=== PATIENT | male | born 2000 | race Caucasian/White ===

== ENCOUNTER 2021-04-14 04:25 | Emergency (ER) | payer OTHER, SELFPAY ==
--- OUTSIDE RECORDS SUMMARY | 2021-04-14 04:29 | XMS REPORT | Continuity of Care Document ---
:2000 Author Organization [facility] t Address [address] [place] [address] Dr. Joseph. [address] [place] [address] Care Team Providers Name Role Phone Oneyda Attending Clinician [phone] Lab, Fam Pob I Attending Clinician Unavailable Priscilla HOWARD Attending Clinician Problems This patient has no known problems. Allergies, Adverse Reactions, Alerts This patient has no known allergies or adverse reactions. Medications This patient has no known medications. Procedures This patient has no known procedures. Encounters Start End Encounter Admission Attending Care Care Encounter Source Date/Time Date/Time Type Type Clinicians Facility Department ID 2020-12-31 2020-12-31 Outpatient [facility] [id number] 00:00:00 00:00:00 Tracey [id number] 2020-12-29 2020-12-29 Laboratory Lab, [facility] [id number] 12:52:56 13:12:56 Only Fam Pob I [facility] [id number] [place] [id number] [facility] [id number] nal [address] 2020-12-19 2020-12-19 Outpatient [facility] [id number] 00:00:00 00:00:00 Tracey [id number] 2020-12-19 2020-12-19 Outpatient [facility] [id number] 00:00:00 00:00:00 Tracey [id number] 2020-10-23 2020-10-23 [facility] [id number] 18:18:00 20:29:00 Walter Love [id number] [place] [id number] [place] [id number] Results This patient has no known results.
[2021-04-14 05:46] LABS: Absolute Lymphocytes (CBC) 0.9 K/uL (0.7-4.9); Hematocrit 49.7 % (39.6-49.0); Lymphocytes % 6.3 % (15.3-44.8); MPV 8.9 fL (7.6-11.3); RBC Red Blood Cell Count 5.63 M/uL (4.33-5.43)
[2021-04-14 05:56] LABS: ALT/SGPT 70 U/L (12-78); AST/SGOT 37 U/L (15-37); Albumin 4.8 g/dL (3.4-5.0); Alkaline Phosphatase 84 U/L (45-117); BUN Blood Urea Nitrogen 11 mg/dL (7-18); Bicarbonate 22 mmol/L (21-32); Bilirubin Direct 0.2 mg/dL (0-0.2); Bilirubin Total 0.5 mg/dL (0.2-1.0); Glucose Level 111 mg/dL (74-106); Lipase 40 U/L (73-393); Potassium 3.9 mmol/L (3.5-5.1); Protein, Total 8.6 g/dL (6.4-8.2); Sodium Level 139 mmol/L (136-145)
[2021-04-14 05:58] LABS: Urine Blood Negative (Negative); Urine Glucose Negative (Negative); Urine Protein 1+ (Negative); Urine Specific Gravity >=1.030 (1.005-1.030); Urine pH 6.5 (5.0-7.0)
[2021-04-14] MEDS ORDERED: NA CHLORIDE 0.9% 1,000 ML ONE (06:06)
[2021-04-14] MEDS ORDERED: ONDANSETRON 4 MG/2 ML VIAL ONE (06:06)
[2021-04-14 06:29] LABS: Blood Morphology Comment NOT SEEN (NOT SEEN); Platelet Estimate ADEQ
[2021-04-14] MEDS ORDERED: PANTOPRAZOLE 40 MG INJ ONE (06:42)
--- NOTE | 2021-04-14 07:27 | ER ---
Nurse's Notes [facility] Name: Russel Ureña Age: 21 yrs Sex: Male : 2000 Arrival Date: 04/14/2021 Time: 04:32 Bed 20 Private MD: Diagnosis: Nausea with vomiting, unspecified Presentation: 04/14 04:47 Chief complaint: Patient states: he drank a lot of alcohol yesterday from noon to 6 or bb 7 pm started vomiting about 3 to 4 hours ago to the point of vomiting blood. Coronavirus screen: At this time, the client does not indicate any symptoms associated with coronavirus-19. Ebola Screen: No symptoms or risks identified at this time. Initial Sepsis Screen: Does the patient meet any 2 criteria? No. Patient's initial sepsis screen is negative. Does the patient have a suspected source of infection? No. Patient's initial sepsis screen is negative. Risk Assessment: Do you want to hurt yourself or someone else? Patient reports no desire to harm self or others. Onset of symptoms was April 14, 2021. 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 - Social history:: Smoking status: Reported history of juuling and/or vaping. Patient uses alcohol, patient/guardian reports recent binge of alcohol consumption. street drugs, marijuana. Screenin:11 Abuse screen: Denies threats or abuse. Denies injuries from another. Nutritional rr5 screening: No deficits noted. Tuberculosis screening: No symptoms or risk factors identified. Fall Risk IV access (20 points). Total Gomez Fall Scale indicates No Risk (0-24 pts). Assessment: 05:00 General: Appears in no apparent distress. uncomfortable, Behavior is calm, cooperative, rr5 appropriate for age. 05:00 Pain: Complains of pain in abdomen Pain currently is 6 out of 10 on a pain scale. rr5 Quality of pain is described as aching, Pain began gradually, Is intermittent. Neuro: Level of Consciousness is awake, alert, obeys commands, Oriented to person, place, time. Cardiovascular: Capillary refill < 3 seconds Patient's skin is warm and dry. Respiratory: Airway is patent Respiratory effort is even, unlabored, Respiratory pattern is regular, symmetrical. GI: Abdomen is round Reports lower abdominal pain, upper abdominal pain, nausea, vomiting. : No signs and/or symptoms were reported regarding the genitourinary system. EENT: No signs and/or symptoms were reported regarding the EENT system. Derm: Skin is intact, is healthy with good turgor, Skin temperature is warm. Musculoskeletal: Capillary refill < 3 seconds. 06:32 Reassessment: Patient and/or family updated on plan of care and expected duration. Pain ak2 level reassessed. 07:00 General: Appears in no apparent distress. Behavior is calm, cooperative. Neuro: Level rb3 of Consciousness is awake, alert, obeys commands, Oriented to person, place, time, situation. Cardiovascular: Patient's skin is warm and dry. Respiratory: Airway is patent Respiratory effort is even, unlabored, Respiratory pattern is regular, symmetrical. GI: No signs and/or symptoms were reported involving the gastrointestinal system. : No signs and/or symptoms were reported regarding the genitourinary system. 07:34 Reassessment: Pt. tolerated PO challenge well. rb3 Vital Signs: 04:47 BP 132 / 89; Pulse 97; Resp 18 S; Temp 97.3(TE); Pulse Ox 99% on R/A; Weight 92.99 kg bb (R); Height 5 ft. 10 in. (177.80 cm) (R); Pain 6/10; 06:34 BP 117 / 86; Pulse 82; Resp 16; Pulse Ox 100% on R/A; ak2 07:30 BP 137 / 65; Pulse 91; Resp 16; Pulse Ox 98% ; rb3 04:47 Body Mass Index 29.41 (92.99 kg, 177.80 cm) bb ED Course: 04:32 Patient arrived in ED. am4 04:49 Triage completed. bb 04:49 Arm band placed on Patient placed in an exam room, on a stretcher, on pulse oximetry. bb 05:00 Inserted saline lock: 18 gauge in left antecubital area, using aseptic technique. Blood bb collected. 05:03 Eliezer Truong, RN is Primary Nurse. rr5 05:11 Patient has correct armband on for positive identification. Bed in low position. Call rr5 light in reach. Pulse ox on. NIBP on. 05:12 Ayden Taylor MD is Attending Physician. 7 06:09 Maribell Valderrama FNP-C [facility]. kb 07:41 No provider procedures requiring assistance completed. IV discontinued, intact, rb3 bleeding controlled, No redness/swelling at site. Pressure dressing applied. Administered Medications: 05:57 Drug: Zofran (Ondansetron) 4 mg Route: IVP; Site: left antecubital; rr5 06:26 Follow up: Response: No adverse reaction rr5 05:58 Drug: NS 0.9% 1000 ml Route: IV; Rate: 1000 ml; Site: left antecubital; rr5 07:06 Follow up: Response: No adverse reaction; IV Status: Completed infusion; IV Intake: rr5 1000ml 06:26 Drug: ProTONIX (pantoprazole) 40 mg Route: IVP; Site: left antecubital; rr5 07:06 Follow up: Response: No adverse reaction rr5 Intake: 07:06 IV: 1000ml; Total: 1000ml. rr5 Outcome: 07:27 Discharge ordered by MD. kb 07:41 Discharged to home ambulatory, with family. rb3 07:41 Condition: stable 07:41 Discharge instructions given to patient, Instructed on discharge instructions, follow up and referral plans. medication usage, Demonstrated understanding of instructions, follow-up care, medications, Prescriptions given X 1. 07:42 Patient left the ED. rb3 Signatures: Maribell Valderrama FNP-C FNP-Ckb Ballard, Brenda RN RN Eliezer Crain RN RN rr5 Ayden Taylor MD MD 7 Ammy Mahan RN RN rb3 Rocio Ruggiero Anthony ak2
--- NOTE | 2021-04-14 07:27 | EDPHYS ---
Physician Documentation [facility] Name: Russel Ureña Age: 21 yrs Sex: Male : 2000 Arrival Date: 04/14/2021 Time: 04:32 Bed 20 Private MD: ED Physician Ayden Taylor HPI: 04/14 06:14 This 21 yrs old Male presents to ER via Ambulatory with complaints of kb Vomiting. 06:14 The patient presents to the emergency department with nausea, vomiting. Onset: The kb symptoms/episode began/occurred last night. Possible causes: etoh consumption. The symptoms are aggravated by nothing. The symptoms are alleviated by nothing. Associated signs and symptoms: Pertinent positives: nausea, vomiting, Pertinent negatives: abdominal pain, anorexia, belching, constipation, diarrhea, dysuria, fever, flatulence, GI bleeding, hematuria. Severity of symptoms: At their worst the symptoms were moderate in the emergency department the symptoms have resolved. The patient has not experienced similar symptoms in the past. The patient has not recently seen a physician. Pt states "I drank way too much yesterday and started vomiting and couldn't stop. I couldn't hold anything down." Pt was given zofran prior to evaluation and states he feels "way better." Pt now comfortable and wants to eat. Denies abd pain, no tenderness upon exam. . 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 - Social history:: Smoking status: Reported history of juuling and/or vaping. Patient uses alcohol, patient/guardian reports recent binge of alcohol consumption. street drugs, marijuana. ROS: 06:14 Constitutional: Negative for fever, chills, and weight loss. kb 06:14 Abdomen/GI: Positive for nausea and vomiting, Negative for abdominal pain. 06:14 All other systems are negative. Exam: 06:14 Constitutional: This is a well developed, well nourished patient who is awake, alert, kb and in no acute distress. Head/Face: Normocephalic, atraumatic. ENT: Moist Mucous membranes Cardiovascular: Regular rate and rhythm with a normal S1 and S2. No gallops, murmurs, or rubs. No pulse deficits. Respiratory: Respirations even and unlabored. No increased work of breathing, no retractions or nasal flaring. Abdomen/GI: Soft, non-tender. No distention Skin: Warm, dry with normal turgor. Normal color. MS/ Extremity: Pulses equal, no cyanosis. Neurovascular intact. Full, normal range of motion. Neuro: Awake and alert, GCS 15, oriented to person, place, time, and situation. Moves all extremities. Normal gait. Psych: Awake, alert, with orientation to person, place and time. Behavior, mood, and affect are within normal limits. Vital Signs: 04:47 BP 132 / 89; Pulse 97; Resp 18 S; Temp 97.3(TE); Pulse Ox 99% on R/A; Weight 92.99 kg bb (R); Height 5 ft. 10 in. (177.80 cm) (R); Pain 6/10; 06:34 BP 117 / 86; Pulse 82; Resp 16; Pulse Ox 100% on R/A; ak2 07:30 BP 137 / 65; Pulse 91; Resp 16; Pulse Ox 98% ; rb3 04:47 Body Mass Index 29.41 (92.99 kg, 177.80 cm) bb MDM: 06:09 Patient medically screened. kb 06:14 Data reviewed: vital signs, nurses notes. Data interpreted: Pulse oximetry: on room air kb is 99 %. Interpretation: normal. 07:26 Counseling: I had a detailed discussion with the patient and/or guardian regarding: the kb historical points, exam findings, and any diagnostic results supporting the discharge/admit diagnosis, lab results, the need for outpatient follow up, a family practitioner, to return to the emergency department if symptoms worsen or persist or if there are any questions or concerns that arise at home. ED course: Pt tolerating po, feels much better and is ready to go home.. 04/14 05:17 Order name: Basic Metabolic Panel; Complete Time: 06:09 rr5 04/14 05:17 Order name: CBC with Diff; Complete Time: 06:34 rr5 04/14 05:17 Order name: Hepatic Function; Complete Time: 06:09 rr5 04/14 05:17 Order name: Lipase; Complete Time: 06:09 rr5 04/14 05:57 Order name: Urine Dipstick-Ancillary; Complete Time: 06:09 EDMS 04/14 06:29 Order name: Manual Differential; Complete Time: 06:34 EDMS 04/14 05:17 Order name: IV Saline Lock; Complete Time: 05:17 rr5 04/14 05:17 Order name: Labs collected and sent; Complete Time: 05:17 rr5 04/14 06:17 Order name: PO challenge; Complete Time: 06:26 kb Administered Medications: 05:57 Drug: Zofran (Ondansetron) 4 mg Route: IVP; Site: left antecubital; rr5 06:26 Follow up: Response: No adverse reaction rr5 05:58 Drug: NS 0.9% 1000 ml Route: IV; Rate: 1000 ml; Site: left antecubital; rr5 07:06 Follow up: Response: No adverse reaction; IV Status: Completed infusion; IV Intake: rr5 1000ml 06:26 Drug: ProTONIX (pantoprazole) 40 mg Route: IVP; Site: left antecubital; rr5 07:06 Follow up: Response: No adverse reaction rr5 Disposition: 04/15 06:07 Co-signature as Attending Physician, Ayden Taylor MD. 7 Disposition Summary: 04/14/21 07:27 Discharge Ordered Location: Home kb Condition: Stable kb Diagnosis - Nausea with vomiting, unspecified kb Followup: kb - With: Emergency Department - When: As needed - Reason: Worsening of condition Followup: kb - With: Private Physician - When: 2 - 3 days - Reason: Recheck today's complaints, Continuance of care, Re-evaluation by your physician Discharge Instructions: - Discharge Summary Sheet kb - Nausea and Vomiting, Adult, [id number] kb Forms: - Medication Reconciliation Form kb - Thank You Letter kb - Antibiotic Education kb - Prescription Opioid Use kb Prescriptions: - ondansetron 4 mg Oral tablet,disintegrating - place 1 tablet by TRANSLINGUAL route every 6 hours As needed; 20 tablet; kb Refills: 0, Product Selection Permitted Signatures: Dispatcher [employer] EDMS Maribell Valderrama FNP-C FNP-Carlyn Ruby RN RN Eliezer Crain RN RN rr5 Ayden Taylor MD MD 7
[2021-04-14 07:51] VITALS: TEMP 97.3
[2021-04-14 07:54] VITALS: BP 137/65; O2SAT 98
== END 2021-04-14 07:42 | disposition home or self-care (01) ==
LOC: ER 04:25
DX: R11.2 Nausea with vomiting, unspecified (principal)
CPT/HCPCS: 36415; 80048; 80076; 81003; 83690; 85025; 96361; 96374; 96375; 99284; C9113; J2405; J7030

== ENCOUNTER 2022-02-17 15:37 | Emergency (ER) | payer SELFPAY ==
--- OUTSIDE RECORDS SUMMARY | 2022-02-17 15:39 | XMS REPORT | Continuity of Care Document ---
:2000 Author Organization [facility] t Address [address] [place] [address] [place] [address] Care Team Providers Name Role Phone ONEYDA_S Attending Clinician Unavailable Brigido Chavez Attending Clinician [phone] Oneyda Attending Clinician [phone] Lab, Fam Pob I Attending Clinician Unavailable Murphy HOWARD Attending Clinician Gabriel MULLER Attending Clinician Unavailable Priscilla HOWARD Attending Clinician PRISCILLA Attending Clinician Unavailable VIVIEN Admitting Clinician Unavailable Payers Payer Name Policy Type Policy Number Effective Date Expiration Date S [facility] [id number] 2015 PPO 00:00:00 Problems This patient has no known problems. Allergies, Adverse Reactions, Alerts Allergy Allergy Status Severity Reaction(s) Onset Inactive Treating Comm ents Source Name Type Date Date Clinician NO KNOWN Drug Active Univers ALLERGIE Class ity of S [facility] Social History Social Habit Start Date Stop Date Quantity Comments Source Exposure to Not sure [facility] SARS-CoV-2 (event) Medica l Branch Sex Assigned At [birth year] [facility] 00:00:00 00:00:00 [facility] Branch Smoking Status Start Date Stop Date Source Unknown if ever smoked [facility] Medications Ordered Filled Start Stop Current Ordering Indication Dosage Frequency Signature Comments Components Source Medication Medication Date Date Medication? Clinician (SIG) Name Name amoxicillin Yes 500mg Take 500 U nivers (TRIMOX) 3-22 mg by ity of 500 mg 21:38: mouth 3 [place] capsule 06 (three) Medical times Branch daily. doxycycline Yes 100mg Take 100 U nivers (VIBRAMYCIN 3-22 mg by ity of ) 100 mg 21:38: mouth [place] capsule 06 every 12 Medical (twelve) Branch hours. clindamycin 2016-0 Yes Take by Un junito (CLEOCIN) 3-22 mouth 4 ity of 150 mg 21:38: (four) [place] capsule 06 times Medical daily. Branch amoxicillin 2016-0 Yes 500mg Take 500 U nivers (TRIMOX) 3-22 mg by ity of 500 mg 21:38: mouth 3 [place] capsule 06 (three) Medical times Branch daily. doxycycline 2016-0 Yes 100mg Take 100 U nivers (VIBRAMYCIN 3-22 mg by ity of ) 100 mg 21:38: mouth [place] capsule 06 every 12 Medical (twelve) Branch hours. clindamycin 2016-0 Yes Take by Un junito (CLEOCIN) 3-22 mouth 4 ity of 150 mg 21:38: (four) [place] capsule 06 times Medical daily. Branch Vital Signs Vital Name Observation Time Observation Value Comments Source Systolic blood 2020-10-24 02:26:51 134 mm[Hg] Univer sity of [facility] Diastolic blood 2020-10-24 02:26:51 67 mm[Hg] [facility] Heart rate 2020-10-24 02:26:51 98 /min [facility] Respiratory rate 2020-10-24 02:26:51 20 /min [facility] saturation in 2020-10-24 02:26:51 100 /min University of Arterial blood by [facility] Pulse oximetry Branch Body temperature 2020-10-24 00:09:00 37.61 Ceci [facility] Body weight 2020-10-24 00:09:00 88.451 kg [facility] Systolic blood 2020-10-24 02:26:51 134 mm[Hg] Univer sity of [facility] Diastolic blood 2020-10-24 02:26:51 67 mm[Hg] [facility] 2020-10-24 02:26:51 98 /min [facility] Respiratory rate 2020-10-24 02:26:51 20 /min [facility] saturation in 2020-10-24 02:26:51 100 /min University of Arterial blood by [facility] Pulse oximetry Branch Body temperature 2020-10-24 00:09:00 37.61 Ceci [facility] Body weight 2020-10-24 00:09:00 88.451 kg [facility] Procedures Procedure Date / Time Performed Performing Clinician Mary Ann jenkins XR CHEST 2 VW 2020-10-24 00:53:58 Lucita [facility] NOTICE OF PRIVACY 2020-10-23 23:57:06 Doctor Unassigned, No [facility] PRACTICES Name Medical Branch CONSENT/REFUSAL FOR 2020-10-23 23:56:30 Doctor Unassigned, No [facility] [place] [facility] AND Name [facility] TREATMENT Encounters Start End Encounter Admission Attending Care Care Encounter Source Date/Time Date/Time Type Type Clinicians Facility Department ID 2022-02-17 2022-02-17 Outpatient WATERS_S [facility] [id number] [place] 02:47:00 02:47:00 [facility] 2022-02-14 2022-02-14 Outpatient [facility]ERS_S [facility] [id number] [place] 01:34:00 01:34:00 0513 [facility] 2022-02-14 2022-02-14 Outpatient Chavez [facility] [id number] 00:00:00 00:00:00 John [id number] Brigido [id number] 2021-04-30 2021-04-30 Outpatient ONEYDA_S [facility] [id number] [place] 02:57:00 02:57:00 0727 [facility] 2021-04-30 2021-04-30 [id number] 00:00:00 00:00:00 Tracey [id number] 2021-03-16 2021-03-16 Outpatient [facility] [id number] [place] 06:31:00 06:31:00 0612 [facility] 2021-02-10 2021-02-10 Outpatient [facility]ERS[facility] [id number] [place] 01:05:00 01:05:00 0509 [facility] 2021-01-06 2021-01-06 Outpatient WATERS_S [facility] [id number] [place] 01:03:00 01:03:00 0404 [facility] 2020-12-31 2020-12-31 Outpatient [facility]ERS[facility] [id number] [place] 05:10:00 05:10:00 0329 [facility] 2020-12-31 2020-12-31 Outpatient Call, [facility] [id number] 00:00:00 00:00:00 Tracey [id number] 2020-12-29 2020-12-29 Outpatient R [facility] [id number] Univers 13:40:00 13:40:00 [id number] [facility] 2020-12-29 2020-12-29 [facility] [id number] 12:52:56 13:12:56 Only Fam Pob I Health [id number] [place] [id number] Professio [id number] [address] One 2020-12-29 2020-12-29 Laboratory Lab, [facility] Fam Pob I [facility] [id number] Univers 12:52:56 13:12:56 Only [place], [facility] [id number] [facility] [id number] Dion as Professio [id number] Oh dical [address] Office Building One 2020-12-29 2020-12-29 Outpatient R YOHANA, [facility] [id number] Univers 12:20:00 12:20:00 AV [facility] 2020-12-20 2020-12-20 Outpatient WATERS_S [facility] [id number] [place] 04:05:00 04:05:00 0318 [facility] 2020-12-19 2020-12-19 Outpatient WATERS_S [facility] [id number] [place] 11:45:00 11:45:00 0317 [facility] 2020-12-19 2020-12-19 Outpatient Oneyda, [facility] [id number] 00:00:00 00:00:00 Tracey [id number] 2020-12-19 2020-12-19 Outpatient Oneyda, [facility] [id number] 00:00:00 00:00:00 Tracey [id number] 2020-10-23 2020-10-23 Emergency [place], [place] [id number] 18:18:00 20:29:00 Loly Love [id number] [place] [id number] [place] [id number] 2020-10-23 2020-10-23 Emergency Ebrahim, [facility] [id number] Univers 18:18:00 20:29:00 Loly Love [id number] i ty of [place] [id number] [facility] [id number] [facility] 084 Branch 2020-10-23 2020-10-23 Emergency X EBRAHIM, [facility] ERT [id number] Univers 18:18:00 18:18:00 LOLY byrd [facility] Results Test Test Test Results Result Source Description Time Comments Comments XR CHEST 2 VW 2020-10- No acute University of cardiopulmonary process. [facility] 01:50:27 RL: [id number] End of report Br anch Ordering physician:LUCITA DIGGS CLINICAL HISTORY: ? ?palpitations, sob TECHNIQUE: 2 views of the chest COMPARISON: ?None FINDINGS: No focal infiltrate, pleural effusion, or pneumothorax. Thecardiomediastinal silhouette is normal. The upper abdomen is unremarkable.No acute osseous abnormality. [facility], Radiant Results Inft User - 10/23/2020 7:51 PM CSTOrdering physician:ULCITA DIGGS CLINICAL HISTORY: palpitations, sob TECHNIQUE: 2 views of the chestCOMPARISON: None FINDINGS:No focal infiltrate, pleural effusion, or pneumothorax. Thecardiomediastinal silhouette is normal. The upper abdomen is unremarkable.No acute osseous abnormality.IMPRESSIONNo acute cardiopulmonary process.RL: [id number] of report
--- NOTE | 2022-02-17 17:27 | ER ---
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 Coronavirus screen: Vaccine status: Patient reports being unvaccinated. Ebola Screen: Patient negative for fever greater than or equal to 101.5 degrees Fahrenheit, and additional compatible Ebola Virus Disease symptoms. Initial Sepsis Screen: Does the patient meet any 2 criteria?. Risk Assessment: Do you want to hurt yourself or someone else? Patient reports no desire to harm self or others. Onset of symptoms was February 17, 2022 at 14:00. 15:49 Method Of Arrival: Ambulatory ll1 15:49 Acuity: HELLEN 4 ll1 Triage Assessment: 15:53 General: Appears in no apparent distress. Behavior is calm, cooperative, appropriate ll1 for age. Pain: Denies pain. Cardiovascular: Rhythm is sinus tachycardia. Historical: - Allergies: 15:52 No Known Allergies; ll1 - Home Meds: 15:52 None [Active]; ll1 - PMHx: 15:52 eosinophlic esophagitis; ll1 - PSHx: 15:52 None; ll1 - Immunization history:: Adult Immunizations not up to date. - Social history:: Smoking status: Reported history of juuling and/or vaping. Vital Signs: 15:49 BP 142 / 82; Pulse 123; Resp 18; Temp 98; Pulse Ox 100% on R/A; Weight 95.25 kg; Height ll1 5 ft. 9 in. (175.26 cm); Pain 0/10; 15:49 Body Mass Index 31.01 (95.25 kg, 175.26 cm) ll1 ED Course: 15:48 Patient arrived in ED. ds1 15:52 Triage completed. ll1 Administered Medications: No medications were administered Outcome: 17:27 Patient left the ED. ll1 Signatures: Radha Stover ds1 Dwayne Griffin, RN RN ll1
[2022-02-17 17:31] VITALS: BP 142/82; TEMP 98; O2SAT 100
--- NOTE | 2022-02-18 09:34 | EKG ---
Test Date: 2022-02-17 Test Time: 15:44:38 Lead Machinist: RENEE MEASUREMENT RESULTS: Intervals: Rate: 123 MO: 182 QRSD: 92 QT: 300 QTc: 429 [place]: P: 67 MO: 182 QRS: 54 T: 54 INTERPRETIVE STATEMENTS: Sinus tachycardia Possible Lateral infarct, age undetermined Possible Inferior infarct, age undetermined Abnormal ECG No previous ECG available for comparison Electronically Signed On 02-18-22 09:32:16 CDT by Robin Byrne
== END 2022-02-17 17:27 | disposition left against medical advice (07) ==
LOC: ER 15:37
DX: R07.9 Chest pain, unspecified (principal); Z53.21 Procedure and treatment not carried out due to patient leaving prior to being seen by health care provider
CPT/HCPCS: 93005; 99283

== ENCOUNTER → 2023-12-27 | Emergency (ER) | payer SELFPAY ==
--- OUTSIDE RECORDS SUMMARY | 2023-12-27 04:22 | XMS REPORT | Continuity of Care Document ---
Author Name Unknown Address [address] [facility]. [address] [place] [address] [facility] Address [address] [facility] [address] [place] [address] Care Team Providers Care Flight Steward Name Role Phone Pcp, Patient Does Not Have A Primary Care Physic simone VINICIO CHICAS Attending Clinician Unavailable Vinicio Chicas MD Attending Clinician [phone] VIVIEN Attending Clinician Unavailable John Rebolledo Attending Clinician [phone] Tracey Call Attending Clinician [phone] Lab, Adc Fam Pob I Attending Clinician UnavailViktoria Myers Attending Clinician [phone] AV MULLER Attending Clinician Unavailable Loly Lester Attending Clinician [phone] LOLY WELLS Attending Clinician Unavailable VIVIEN Admitting Clinician Unavailable Payers Payer Name Policy Type Policy Number Effective Date Expirati on Date Source [facility] [id number] 2015 00:00:00 Problems Condition Name Condition Details Condition Category Status Onset Date Resolution Date Last Treatment Date Treating Clinician Comments Source Body mass index 30+ - obesity Body Mass Index 30+ - Obesity Problem Active 02-14 00:00: 00 Dank Hudsoni ty [facility] Essential hypertensi on Essential Hypertensi on Problem Active 02-14 00:00: 00 [facility] Exposure to SARS-CoV-2 Exposure to SARS-CoV-2 Problem Active 12-31 00:00: 00 [facility] COVID-19 Covid-19 Problem Active 12-31 00:00: 00 [facility] Allergies, Adverse Reactions, Alerts Allergy Name Allergy Type Status Severity Reaction(s) Onset Date Inactive Date Treating Clinician Comments Source NO KNOWN ALLERGIE S Drug Class Active [facility] Social History Social Habit Start Date Stop Date Quantity Comments Source Exposure to SARS-CoV-2 (event) Not sure [facility] At 2000 00:00:00 2000 00:00:00 [facility] Smoking Status Start Date Stop Date Source Current Some Day Smoker [facility] Tobacco smoking consumption unknown [facility] Medications Ordered Medication Name Filled Medication Name Start Date Stop Date Current Medication? Ordering Clinician Indication Dosage Frequency Signature (SIG) Comments Components Source doxycycline monohydrate 100 mg capsule TAKE 1 CAPSULE BY MOUTH TWICE DAILY doxycycline monohydrate 100 mg capsule TAKE 1 CAPSULE BY MOUTH TWICE DAILY 12-31 00:00: 00 No doxycyclin e monohydrat e 100 mg capsule TAKE 1 CAPSULE BY MOUTH TWICE DAILY [facility] amoxicillin (TRIMOX) 500 mg capsule 12-24 21:38: 06 Yes 500mg Take 500 mg by mouth 3 (three) times daily. [facility] doxycycline (VIBRAMYCIN ) 100 mg capsule 12-24 21:38: 06 Yes 100mg Take 100 mg by mouth every 12 (twelve) hours. [facility] clindamycin (CLEOCIN) 150 mg capsule 12-24 21:38: 06 Yes Take by mouth 4 (four) times daily. [facility] amoxicillin (TRIMOX) 500 mg capsule 12-24 21:38: 06 Yes 500mg Take 500 mg by mouth 3 (three) times daily. [facility] doxycycline (VIBRAMYCIN ) 100 mg capsule 12-24 21:38: 06 Yes 100mg Take 100 mg by mouth every 12 (twelve) hours. [facility] clindamycin (CLEOCIN) 150 mg capsule 12-24 21:38: 06 Yes Take by mouth 4 (four) times daily. [facility] amoxicillin (TRIMOX) 500 mg capsule 12-24 16:38: 06 Yes 500mg Take 500 mg by mouth 3 (three) times daily. [facility] doxycycline (VIBRAMYCIN ) 100 mg capsule 12-24 16:38: 06 Yes 100mg Take 100 mg by mouth every 12 (twelve) hours. [facility] clindamycin (CLEOCIN) 150 mg capsule 12-24 16:38: 06 Yes Take by mouth 4 (four) times daily. [facility] Zyrtec 10 mg tablet Take 1 tablet every day by oral route. Zyrtec 10 mg tablet Take 1 tablet every day by oral route. No 1 Q1D Zyrtec 10 mg tablet Take 1 tablet every day by oral route. [facility] albuterol sulfate HFA 90 mcg/actuati on aerosol inhaler INHALE 2 PUFFS BY MOUTH EVERY 4 HOURS FOR 7 DAYS albuterol sulfate HFA 90 mcg/actuati on aerosol inhaler INHALE 2 PUFFS BY MOUTH EVERY 4 HOURS FOR 7 DAYS No albuterol sulfate HFA 90 mcg/actuat ion aerosol inhaler INHALE 2 PUFFS BY MOUTH EVERY 4 HOURS FOR 7 DAYS [facility] azithromyci n 500 mg tablet Take 1 tablet every day by oral route for 5 days. azithromyci n 500 mg tablet Take 1 tablet every day by oral route for 5 days. No 1 Q1D azithromyc in 500 mg tablet Take 1 tablet every day by oral route for 5 days. [facility] ketorolac 10 mg tablet Take 1 tablet every 6-8 hours by oral route as needed. ketorolac 10 mg tablet Take 1 tablet every 6-8 hours by oral route as needed. No 1 Q7H ketorolac 10 mg tablet Take 1 tablet every 6-8 hours by oral route as needed. [facility] prednisone 20 mg tablet Take 1 tablet twice a day by oral route for 5 days. prednisone 20 mg tablet Take 1 tablet twice a day by oral route for 5 days. No 1 BID prednisone 20 mg tablet Take 1 tablet twice a day by oral route for 5 days. [facility] Zithromax Z-Niko 250 mg tablet TAKE 2 TABLETS (500 MG) BY ORAL ROUTE ONCE DAILY FOR 1 DAY THEN 1 TABLET (250 MG) BY ORAL ROUTE ONCE DAILY FOR 4 DAYS Zithromax Z-Niko 250 mg tablet TAKE 2 TABLETS (500 MG) BY ORAL ROUTE ONCE DAILY FOR 1 DAY THEN 1 TABLET (250 MG) BY ORAL ROUTE ONCE DAILY FOR 4 DAYS No Zithromax Z-Niko 250 mg tablet TAKE 2 TABLETS (500 MG) BY ORAL ROUTE ONCE DAILY FOR 1 DAY THEN 1 TABLET (250 MG) BY ORAL ROUTE ONCE DAILY FOR 4 DAYS [facility] naproxen 500 mg tablet Take 1 tablet twice a day by oral route. naproxen 500 mg tablet Take 1 tablet twice a day by oral route. No 1 BID naproxen 500 mg tablet Take 1 tablet twice a day by oral route. [facility] naproxen 500 mg tablet Take 1 tablet twice a day by oral route. naproxen 500 mg tablet Take 1 tablet twice a day by oral route. No 1 BID naproxen 500 mg tablet Take 1 tablet twice a day by oral route. [facility] albuterol sulfate HFA 90 mcg/actuati on aerosol inhaler Inhale 2 puffs every 4 hours by inhalation route for 7 days. albuterol sulfate HFA 90 mcg/actuati on aerosol inhaler Inhale 2 puffs every 4 hours by inhalation route for 7 days. No 2puff(s ) Q4H albuterol sulfate HFA 90 mcg/actuat ion aerosol inhaler Inhale 2 puffs every 4 hours by inhalation route for 7 days. [facility] melatonin 3 mg tablet Take 1 tablet every day by oral route in the evening for 30 days. melatonin 3 mg tablet Take 1 tablet every day by oral route in the evening for 30 days. No 1 Q1D melatonin 3 mg tablet Take 1 tablet every day by oral route in the evening for 30 days. [facility] prednisone 20 mg tablet Take 1 tablet twice a day by oral route for 5 days. prednisone 20 mg tablet Take 1 tablet twice a day by oral route for 5 days. No 1 BID prednisone 20 mg tablet Take 1 tablet twice a day by oral route for 5 days. [facility] promethazin e-DM 6.25 mg-15 mg/5 mL oral syrup Take 5 mL every 6-8 hours by oral route as needed. promethazin e-DM 6.25 mg-15 mg/5 mL oral syrup Take 5 mL every 6-8 hours by oral route as needed. No 5mL Q7H promethazi ne-DM 6.25 mg-15 mg/5 mL oral syrup Take 5 mL every 6-8 hours by oral route as needed. [facility] Vitamin C 1,000 mg tablet Take 1 tablet every day by oral route for 30 days. Vitamin C 1,000 mg tablet Take 1 tablet every day by oral route for 30 days. No 1 Q1D Vitamin C 1,000 mg tablet Take 1 tablet every day by oral route for 30 days. [facility] Vitamin D3 125 mcg (5,000 unit) tablet Take 1 tablet every day by oral route for 30 days. Vitamin D3 125 mcg (5,000 unit) tablet Take 1 tablet every day by oral route for 30 days. No 1 Q1D Vitamin D3 125 mcg (5,000 unit) tablet Take 1 tablet every day by oral route for 30 days. [facility] zinc sulfate 50 mg zinc (220 mg) capsule Take 1 capsule every day by oral route. zinc sulfate 50 mg zinc (220 mg) capsule Take 1 capsule every day by oral route. No 1capsul e(s) Q1D zinc sulfate 50 mg zinc (220 mg) capsule Take 1 capsule every day by oral route. [facility] Vital Signs Vital Name Observation Time Observation Value Comments S ource Systolic blood pressure 2023-07-19 03:08:00 145 mm[Hg] [facility] Diastolic blood pressure 2023-07-19 03:08:00 88 mm[Hg] [facility] Heart rate 2023-07-19 03:08:00 87 /min Un[facility] Body temperature 2023-07-19 03:08:00 36.72 Ceci [facility] Respiratory rate 2023-07-19 03:08:00 20 /min [facility] Body height 2023-07-19 03:08:00 175.3 cm [facility] Body weight 2023-07-19 03:08:00 92.987 kg [facility] BMI 2023-07-19 03:08:00 30.27 kg/m2 [facility] Oxygen saturation in Arterial blood by Pulse oximetry 2023-07-19 03:08:00 100 /min [facility] BP Diastolic 2022-02-14 00:00:00 88 mm[Hg] [facility] Height 2022-02-14 00:00:00 69 [in_i] [facility] BMI (Body Mass Index) 2022-02-14 00:00:00 30.3 kg/m2 [facility] BP Systolic 2022-02-14 00:00:00 142 mm[Hg] [facility] Body Weight 2022-02-14 00:00:00 3280 [oz_av] [facility] BP Diastolic 2021-04-30 00:00:00 88 mm[Hg] [facility] Height 2021-04-30 00:00:00 69 [in_i] [facility] BMI (Body Mass Index) 2021-04-30 00:00:00 30.7 kg/m2 [facility] BP Systolic 2021-04-30 00:00:00 137 mm[Hg] [facility] Body Weight 2021-04-30 00:00:00 3328 [oz_av] [facility] BP Diastolic 2020-12-19 00:00:00 75 mm[Hg] [facility] BP Systolic 2020-12-19 00:00:00 135 mm[Hg] [facility] Body Weight 2020-12-19 00:00:00 3340.8 [oz_av] [facility] Systolic blood pressure 2020-10-24 02:26:51 134 mm[Hg] [facility] Diastolic blood pressure 2020-10-24 02:26:51 67 mm[Hg] [facility] Heart rate 2020-10-24 02:26:51 98 /min [facility] Respiratory rate 2020-10-24 02:26:51 20 /min [facility] Oxygen saturation in Arterial blood by Pulse oximetry 2020-10-24 02:26:51 100 /min [facility] Body temperature 2020-10-24 00:09:00 37.61 Ceci [facility] Body weight 2020-10-24 00:09:00 88.451 kg [facility] Systolic blood pressure 2020-10-24 02:26:51 134 mm[Hg] [facility] Diastolic blood pressure 2020-10-24 02:26:51 67 mm[Hg] [facility] Heart rate 2020-10-24 02:26:51 98 /min [facility] Respiratory rate 2020-10-24 02:26:51 20 /min [facility] Oxygen saturation in Arterial blood by Pulse oximetry 2020-10-24 02:26:51 100 /min [facility] Body temperature 2020-10-24 00:09:00 37.61 Ceci [facility] Body weight 2020-10-24 00:09:00 88.451 kg [facility] Procedures Procedure Date / Time Performed Performing Clinicia n Source ASSIGNMENT OF BENEFITS 2023-07-19 03:30:59 Docto r Unassigned, [place] [facility] NOTICE OF PRIVACY PRACTICES 2023-07-19 02:57:04 Doctor Unassigned, [place] [facility] CONSENT/REFUSAL FOR DIAGNOSIS AND TREATMENT 2023-07-19 02:51:28 Doctor Unassigned, [place] [facility] XR CHEST 2 VW 2020-10-24 00:53:58 Lucita Diggs [facility] NOTICE OF PRIVACY PRACTICES 2020-10-23 23:57:06 Doctor Unassigned, [place] [facility] CONSENT/REFUSAL FOR DIAGNOSIS AND TREATMENT 2020-10-23 23:56:30 Doctor Unassigned, [place] [facility] Plan of Care Planned Activity Planned Date Details Comments Source Diagnostic Test Pending 2022-02-14 00:00:00 rapid SARS CoV 2 Ag, QL IA, respiratory specimen [code = rapid SARS CoV 2 Ag, QL IA, respiratory specimen] [facility] Instructions [facility] Encounters Start Date/Time End Date/Time Encounter Type Admission Type Attending [facility] Care Facility Care Department Encounter ID Source 2023-07-18 22:12:00 2023-07-18 22:37:00 Emergency X VINICIO CHICAS [facility] [id number] [facility] 2023-07-18 22:12:00 2023-07-18 22:37:00 Emergency Vinicio Chicas [facility] [id number] [facility] 2022-03-29 01:50:00 2022-03-29 01:50:00 Outpatient [facility] [id number] [facility] 2022-02-22 01:28:00 2022-02-22 01:28:00 Outpatient [facility] [id number] [facility] 2022-02-18 09:05:00 2022-02-18 09:05:00 Outpatient [facility] [id number] [facility] 2022-02-17 02:47:00 2022-02-17 02:47:00 Outpatient [facility] [id number] [facility] 2022-02-14 01:34:00 2022-02-14 01:34:00 Outpatient [facility] [id number] [facility] 2022-02-14 00:00:00 2022-02-14 00:00:00 Outpatient John Rebolledo [facility] [id number] 2022-02-14 00:00:00 2022-02-14 00:00:00 John Rebolledo, DO: [address], [place] [address] , Ph. [phone] [facility], DR. REBOLLEDO [id number] [facility] 2021-04-30 02:57:00 2021-04-30 02:57:00 Outpatient [facility] [id number] [facility] 2021-04-30 00:00:00 2021-04-30 00:00:00 LOUISE AlvarezANIMAL CARE GIVER-C: [address] [place] [address], [address] [address] , Ph. [facility] [id number] [facility] 2021-04-30 00:00:00 2021-04-30 00:00:00 Outpatient Tracey Call [facility] [id number] 2021-03-16 06:31:00 2021-03-16 06:31:00 Outpatient [facility] [id number] [facility] 2021-02-10 01:05:00 2021-02-10 01:05:00 Outpatient [facility] [id number] [facility] 2021-01-06 01:03:00 2021-01-06 01:03:00 Outpatient [facility] [id number] [facility] 2020-12-31 05:10:00 2020-12-31 05:10:00 Outpatient [facility] [id number] [facility] 2020-12-31 00:00:00 2020-12-31 00:00:00 FREDA AlvarezC: [address] [facility] [address], [address] [address] , Ph. [facility] [id number] [facility] 2020-12-31 00:00:00 2020-12-31 00:00:00 Outpatient Tracey Call [facility] [id number] 2020-12-29 12:52:56 2020-12-29 13:12:56 Laboratory Only Lab, [id number] 2020-12-29 12:52:56 2020-12-29 13:12:56 Laboratory Only Lab, [facility] Pob I Viktoria Arrington [facility] [id number] [facility] 2020-12-29 12:20:00 2020-12-29 12:20:00 Outpatient AV MAYORGA [facility] [id number] [facility] 2020-12-26 00:00:00 2020-12-26 00:00:00 Tracey Call APRN-ANIMAL CARE GIVER-C: [address] [facility], [address] [place] [address] , Ph. [facility] [id number] [facility] 2020-12-20 04:05:00 2020-12-20 04:05:00 Outpatient [facility] [id number] [facility] 2020-12-19 11:45:00 2020-12-19 11:45:00 Outpatient [facility] [id number] [facility] 2020-12-19 00:00:00 2020-12-19 00:00:00 Outpatient Tracey Call [facility] [id number] 2020-12-19 00:00:00 2020-12-19 00:00:00 Tracey Call NURSING HOME DIRECTOR-ANIMAL CARE GIVER-C: [address], [address], [place] [address] , Ph. [facility] [id number] [facility] 2020-12-19 00:00:00 2020-12-19 00:00:00 Outpatient Tracey Call [facility] [id number] 2020-10-23 18:18:00 2020-10-23 20:29:00 Emergency EbLoly cruz [facility] [id number] 2020-10-23 18:18:00 2020-10-23 20:29:00 Emergency Loly Wells [facility] [id number] [facility] 2020-10-23 18:18:00 2020-10-23 18:18:00 Emergency X LOLY WELLS [facility] ERT [id number] [facility] Results Test Description Test Time Test Comments Results Result Comments Source XR CHEST 2 VW 01:50:27 No acute cardiopulmonary process. RL: [id number] End of report Ordering physician:LUCITA DIGGS CLINICAL HISTORY: ? ?palpitations, sob TECHNIQUE: 2 views of the chest COMPARISON: ?None FINDINGS: No focal infiltrate, pleural effusion, or pneumothorax. Thecardiomediastinal silhouette is normal. The upper abdomen is unremarkable.No acute osseous abnormality. [facility], Radiant Results Inft User - 10/23/2020 7:51 PM CSTOrdering physician:LUCITA DIGGS CLINICAL HISTORY: palpitations, sob TECHNIQUE: 2 views of the chestCOMPARISON: None FINDINGS:No focal infiltrate, pleural effusion, or pneumothorax. Thecardiomediastinal silhouette is normal. The upper abdomen is unremarkable.No acute osseous abnormality.IMPRESSIONNo acute cardiopulmonary process.RL: [id number] of report [facility]
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
[2023-12-27 06:52] VITALS: TEMP 98
[2023-12-27 07:25] VITALS: BP 148/69; O2SAT 95
--- NOTE | 2023-12-28 10:32 | RAD REPORT ---
EXAM DESCRIPTION: CT Head and Cervical Spine Without Intravenous Contrast CLINICAL HISTORY: The patient is 23 years old and is Male; TRAUMA Bed Name: 4 TECHNIQUE: Axial computed tomography images of the head/brain and cervical spine without intravenous contrast. Sagittal and coronal reformatted images were created and reviewed. This CT exam was pe rformed using one or more of the following dose reduction techniques: automated exposure control, a djustment of the mA and/or kV according to patient size, and/or use of iterative reconstruction techn ique. COMPARISON: No relevant prior studies available. FINDINGS: BRAIN: No extra-axial fluid collection. No intracranial hemorrhage. No focal conway-white matter differentiation abnormality. MIDLINE SHIFT: No midline shift. VENTRICLES: Unremarkable No ventriculomegaly. SKULL: See below. SINUSES: Mild mucosal thickening of the bilateral ethmoid air cells. MASTOID AIR CELLS: Unremarkable as visualized. No mastoid effusion. VERTEBRAE: No acute fracture or acute vertebral body height loss. No significant subluxation. DISCS/SPINAL CANAL/NEURAL FORAMINA: Low-lying cerebellar tonsils without overt herniation or Chiari malformation. No transtentorial herniation. No significant vianey spinal canal stenosis. OTHER BONES/JOINTS: Unremarkable as visualized. No fracture of the calvarium or visualized facial bones. SOFT TISSUES: Unremarkable No abnormal prevertebral soft tissue swelling. OTHER FINDINGS: Dens is intact. No dislocation. Craniocervical orientation is normal. IMPRESSION: No acute intracranial or cervical spine abnormality. Electronically signed by: Lazaro Wren MD 12/27/2023 06:19 AM CDT Due to temporary technical issues with the PACS/Fluency reporting system, reports are being signed by the in house radiologist without review as a courtesy to ensure prompt reporting. The interpreting r adiologist is fully responsible for the content of the report.
--- NOTE | 2023-12-28 10:37 | RAD REPORT ---
EXAM DESCRIPTION: CT Maxillofacial Without Intravenous Contrast CLINICAL HISTORY: The patient is 23 years old and is Male; TRAUMA TECHNIQUE: Axial computed tomography images of the face without intravenous contrast. Sagittal and coronal reformatted images were created and reviewed. This CT exam was performed using one or more of the following dose reduction techniques: automated exposure control, adjustment of the mA and/o r kV according to patient size, and/or use of iterative reconstruction technique. COMPARISON: No relevant prior studies available. FINDINGS: Bones/joints: No acute facial fracture visualized. Soft tissues: Unremarkable. Orbits: Unremarkable. Sinuses: Mild multifocal sinus mucosal thickening. No air-fluid levels. IMPRESSION: 1. No acute facial fracture visualized. 2. Mild multifocal sinus mucosal thickening. Electronically signed by: Carolyn Talley MD 12/27/2023 05:51 AM CDT Due to temporary technical issues with the PACS/Fluency reporting system, reports are being signed by the in house radiologist without review as a courtesy to ensure prompt reporting. The interpreting r adiologist is fully responsible for the content of the report.
== END ==
LOC: ER 04:18
DX: S09.90XA Unspecified injury of head, initial encounter (principal); R42 Dizziness and giddiness
CPT/HCPCS: 70450; 70486; 72125; 76377; 99283